=== PATIENT | female | born 1995 | race Caucasian/White ===

== ENCOUNTER 2018-05-18 06:24 | Emergency (ER) | payer OTHER ==
[2018-05-18] MEDS ORDERED: NORMAL SALINE 1000 ML 1,000 ML IV ONE (06:57)
[2018-05-18] MEDS ORDERED: KETOROLAC TROMETHAMINE INJ/PF 30 MG/1 ML SDV IV ONE (06:57)
[2018-05-18] MEDS ORDERED: ONDANSETRON HCL INJ/PF 4 MG/2 ML SDV IV ONE (06:57)
[2018-05-18 07:52] LABS: ALANINE AMINOTRANSFERASE 55 U/L (9-52); ALBUMIN 3.9 g/dL (3.5-5.0); ALKALINE PHOSPHATASE 136 U/L (38-126); ANION GAP 10 (5-19); ASPARTATE AMINO TRANSFERASE 35 U/L (14-36); BILIRUBIN,DIRECT 0.5 mg/dL (0.0-0.4); BILIRUBIN,TOTAL 1.3 mg/dL (0.2-1.3); BLOOD UREA NITROGEN 9 mg/dL (7-20); CALCIUM 9.5 mg/dL (8.4-10.2); CARBON DIOXIDE 26 mmol/L (22-30); CHLORIDE 101 mmol/L (98-107); GLUCOSE 129 mg/dL (75-110); LIPASE 13.8 U/L (23-300); POTASSIUM 4.1 mmol/L (3.6-5.0); SODIUM 136.8 mmol/L (137-145); TOTAL PROTEIN 6.7 g/dL (6.3-8.2)
[2018-05-18 07:54] LABS: HEMATOCRIT 34.7 % (36.0-47.0); HEMOGLOBIN 12.5 g/dL (12.0-15.5); MEAN CORPUSCULAR HEMOGLOBIN 31.5 pg (27.0-33.4); MEAN CORPUSCULAR HGB CONC 36.1 g/dL (32.0-36.0); MEAN CORPUSCULAR VOLUME 87 fl (80-97); PLATELET COUNT 360 10^3/uL (150-450); RED BLOOD COUNT 3.98 10^6/uL (3.72-5.28); RED CELL DISTRIBUTION WIDTH 11.7 % (11.5-14.0); WHITE BLOOD COUNT 19.3 10^3/uL (4.0-10.5)
[2018-05-18 07:59] LABS: AMORPHOUS SEDIMENT,URINE TRACE /HPF; APPEARANCE,URINE SLIGHTLY-CLOUDY; BILIRUBIN,URINE NEGATIVE (NEGATIVE); COLOR,URINE YELLOW; GLUCOSE, URINE NEGATIVE (NEGATIVE); KETONES,URINE NEGATIVE (NEGATIVE); LEUKOCYTE ESTERASE,URINE NEGATIVE (NEGATIVE); NITRITE,URINE NEGATIVE (NEGATIVE); PROTEIN,URINE NEGATIVE (NEGATIVE); URINE SPECIFIC GRAVITY 1.014
[2018-05-18 08:12] LABS: ABSOLUTE MONOCYTES # (MANUAL) 0.8 10^3/uL (0.1-1.4); ABSOLUTE NEUTROPHILS# (MANUAL) 17.4 10^3/uL (1.7-8.2); BASOPHILS % (MANUAL) 0 % (0-2); EOSINOPHILS % (MANUAL) 1 % (0-6); LYMPHOCYTES % (MANUAL) 5 % (13-45); MONOCYTES % (MANUAL) 4 % (3-13); PLATELET COMMENT ADEQUATE; SEGMENTED NEUTROPHILS % (MAN) 90 % (42-78); TOTAL CELLS COUNTED 100; TOXIC GRANULATION SLIGHT
--- NOTE | 2018-05-18 09:10 | RADIOLOGY REPORT (SQ) ---
EXAM DESCRIPTION: CT ABD/PELVIS WITH IV ONLY COMPLETED DATE/TIME: 05/18/2018 8:44 am REASON FOR STUDY: concern for appendicitis COMPARISON: None. TECHNIQUE: CT scan of the abdomen and pelvis performed using helical scanning technique with dynamic intravenous contrast injection. No oral contrast. Images reviewed with lung, soft tissue, and bone windows. Reconstructed coronal and sagittal MPR images reviewed. Delayed images for evaluation of the urinary system also acquired. All images stored on PACS. All CT scanners at this facility use dose modulation, iterative reconstruction, and/or weight based d osing when appropriate to reduce radiation dose to as low as reasonably achievable (ALARA). [facility]: Dose Right [facility]: CareDose [facility]: Dose Right [facility]: Teradose 4D [facility]: [employer] CONTRAST TYPE AND DOSE: contrast/concentration: Isovue 350.00 mg/ml; Total Contrast Delivered: 89.0 ml; Total Saline Delivered: 70.0 ml RENAL FUNCTION: Creatinine: 0.62 RADIATION DOSE: CT Rad equipment meets quality standard of care and radiation dose reduction techniq ues were employed. CTDIvol: 8.7 - 12.3 mGy. DLP: 1213 mGy-cm.. LIMITATIONS: None. FINDINGS: LOWER CHEST: Dependent atelectasis in lung bases. LIVER: Normal. SPLEEN: Normal. PANCREAS: Normal. GALLBLADDER: Normal. ADRENAL GLANDS: Normal. RIGHT KIDNEY AND URETER: No solid masses. No significant calcifications. No hydronephrosis or hyd roureter. LEFT KIDNEY AND URETER: No solid masses. No significant calcifications. No hydronephrosis or hydr oureter. AORTA AND VESSELS: No aneurysm. No dissection. Renal arteries, SMA, celiac without stenosis. RETROPERITONEUM: No retroperitoneal adenopathy, hemorrhage or masses. Multiple small nonenlarged per iaortic nodes. Scattered mesenteric nodes. BOWEL AND PERITONEAL CAVITY: No masses or inflammatory changes. No free fluid or peritoneal masses. APPENDIX: Not seen. PELVIS: Uterus: IUD in place. Small follicular cysts of the left ovary. 2.6 cm left ovarian cyst w ith surrounding inflammatory change and fluid suggesting recent rupture of a follicle. Urinary bladd er: Distended. ABDOMINAL WALL: No masses. No hernias. BONES: No abnormality OTHER: No other significant finding. IMPRESSION: 1. There is evidence of prominent follicular cysts of the left ovary. Changes consiste nt with recent rupture of follicular cyst with fluid and inflammatory change surrounding the left ova ry. COMMENT: The case was discussed with ER physician Dr. Martinez TECHNICAL DOCUMENTATION: JOB ID: [id number] Quality ID # [id number]: Final reports with documentation of one or more dose reduction techniques (e.g., Au tomated exposure control, adjustment of the mA and/or kV according to patient size, use of iterative reconstruction technique) 2010 [employer]- All Rights Reserved Reading location - IP/workstation name: [email or web address]
[2018-05-18] MEDS ORDERED: HYDROCODONE/ACETAMINOPHEN 5-325 MG TABLET PO ONE (10:13)
--- NOTE | 2018-05-18 10:15 | ER Document Report ---
ED General - General Chief Complaint: Abdominal Pain Stated Complaint: ABDOMINAL PAIN Time Seen by Provider: 05/18/18 06:45 Mode of Arrival: Ambulatory TRAVEL OUTSIDE OF THE [place] IN LAST 30 DAYS: No - HPI Patient complains to provider of: Abdominal pain Onset: Other - Healthy 22-year-old female who presents to the emergency department for abdominal pain which started last night around 10 PM making it difficult for her to sleep. She has had persistent pain since that time which worsened a little bit this morning prompting her and her mother to come to the emergency department. She notes some nausea some loose bowel movements. No chest pain shortness of breath lightheadedness diaphoresis back pain or other symptoms that she is noticed. She is never had anything like this in the past, has never surgical history, no known health problems no allergies. - Related Data Allergies/Adverse Reactions: nitrofurantoin Adverse Reaction (Verified 05/18/18 07:57) GI upset Past Medical History - General Information source: Patient, Relative - Social History Smoking Status: Unknown if Ever Smoked Family History: None Patient has suicidal ideation: No Patient has homicidal ideation: No Renal/ Medical History: Denies: Hx Peritoneal Dialysis Review of Systems - Review of Systems -: Yes All other systems reviewed and negative Physical Exam - Vital signs Vitals: Temp Pulse Resp BP Pulse Ox 98.8 F 112 H 18 115/64 97 05/18/18 06:24 05/18/18 06:24 05/18/18 06:24 05/18/18 06:24 05/18/18 06:24 Interpretation: Normal - General General appearance: Appears well, Alert - HEENT Head: Normocephalic, Atraumatic Eyes: Normal Pupils: PERRL - Respiratory Respiratory status: No respiratory distress Chest status: Nontender Breath sounds: Normal Chest palpation: Normal - Cardiovascular Rhythm: Regular Heart sounds: Normal auscultation Murmur: No - Abdominal Inspection: Normal Distension: No distension Bowel sounds: Normal Tenderness: Tender - Diffuse tenderness most prominent in the right lower quadrant with no appreciable rebound or guarding Organomegaly: No organomegaly - Back Back: Normal, Nontender - Extremities General upper extremity: Normal inspection, Nontender, Normal color, Normal ROM, Normal temperature General lower extremity: Normal inspection, Nontender, Normal color, Normal ROM, Normal temperature, Normal weight bearing. No: John Paul's sign - Neurological Neuro grossly intact: Yes Cognition: Normal Orientation: AAOx4 Elvin Coma Scale Eye Opening: Spontaneous [place]vin Coma Scale Verbal: Oriented [place] Coma Scale Motor: Obeys Commands [place] Coma Scale Total: 15 Speech: Normal Motor strength normal: LUE, RUE, LLE, RLE Sensory: Normal - Psychological Associated symptoms: Normal affect, Normal mood - Skin Skin Temperature: Warm Skin Moisture: Dry Skin Color: Normal Course - Re-evaluation Re-evalutation: 05/18/18 11:40 Is a well-appearing 22-year-old female who is relatively benign abdominal examination the presents for evaluation of abdominal pain times last night. Does have some cramping associated with it does have some nausea associated with a low-grade fever. Have a broad differential for this patient including but not limited to appendicitis, pancreatitis, cholecystitis, potential ovarian pathology pelvic pathology. We will obtain broad workup including urinalysis CT abdomen and pelvis CBC CMP. CT abdomen and pelvis any obvious appendicitis no obvious cholecystitis does demonstrate some pelvic fluid consistent likely with a cystic lesion in her left ovary. She does have a prominent leukocytosis. Following 2-hour reevaluation the patient continues to have a benign abdominal examination. I do not believe this represents a developing appendicitis. We did discuss potential underlying pelvic pathology she denies specifically any pelvic pain or pelvic discharge. Because she is well-appearing and able tolerate p.o. I will plan for the admi nistration of Toradol oral narcotic pain medication pelvic swabs. We will plan for probable discharge with return precautions and pending treatment of chlamydia or gonorrhea as necessary. 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 - Vital Signs Vital signs: Temp Pulse Resp BP Pulse Ox 98.8 F 112 H 18 115/64 97 05/18/18 06:24 05/18/18 06:24 05/18/18 06:24 05/18/18 06:24 05/18/18 06:24 - Laboratory Result Diagrams: 05/18/18 07:20 05/18/18 07:20 Laboratory results interpreted by me: 05/18/18 05/18/18 05/18/18 07:20 07:20 07:29 WBC 19.3 H Hct 34.7 L MCHC 36.1 H Seg Neuts % (Manual) 90 H Lymphocytes % (Manual) 5 L Abs Neuts (Manual) 17.4 H Sodium 136.8 L Glucose 129 H Direct Bilirubin 0.5 H ALT 55 H Alkaline Phosphatase 136 H Lipase 13.8 L Urine Urobilinogen 4.0 H Discharge - Discharge Clinical Impression: Nausea Abdominal pain Qualifiers: Abdominal location: unspecified location Qualified Code(s): R10.9 - Unspecified abdominal pain Ovarian cyst Qualifiers: Laterality: left Qualified Code(s): N83.202 - Unspecified ovarian cyst, left side Condition: Good Disposition: HOME, SELF-CARE Instructions: Abdominal Pain ([facility]), Antinausea Medication ([facility]), Oral Narcotic Medication ([facility]) Additional Instructions: Your seen today in the emergency department for your abdominal pain. I believe that your abdominal pain as a result of an ovarian cyst. You had an evaluation including a CAT scan, urine test, blood tests. I think it is important for you that you continue to use medication as needed, in case of any worsening pain he should return to the emergency room. You may use 1 g of Tylenol 4 times a day. You should use ibuprofen 400 mg every 6 hours. You should use the pain medication prescribed you only as needed. If you have fevers or chills inability to eat or drink please return to the emergency room. Prescriptions: Hydrocodone/Acetaminophen [Kinsey 5-325 mg Tablet] 1 tab PO Q8 PRN #12 tablet PRN Reason: Ondansetron [Zofran Odt 4 mg Tablet] 1 - 2 tab PO Q4H PRN #15 tab.rapdis PRN Reason: For Nausea/Vomiting
[2018-05-18 12:16] LABS: CHLAM PCR NOT DETECTED (NOT DETECT); GON PCR NOT DETECTED (NOT DETECT)
[2018-05-18 12:53] VITALS: BP 105/49
== END 2018-05-18 12:57 | disposition home or self-care (01) ==
LOC: ER 06:24
DX: N83.02 Follicular cyst of left ovary (principal); R11.0 Nausea; R19.4 Change in bowel habit; R50.9 Fever, unspecified; D72.829 Elevated white blood cell count, unspecified
CPT/HCPCS: 99284; 96361; 96374; 96375; 36415; 87070; 87086; 87880; 83690; 85025; 81025; 87077; 80053; 81001; 87491; 87591; 74177; J1885; J2405; J7030

== ENCOUNTER 2018-05-23 12:36 | Emergency (ER) | payer OTHER ==
[2018-05-23] MEDS ORDERED: KETOROLAC TROMETHAMINE 60 MG/2 ML SDV IM ONE (14:23)
--- NOTE | 2018-05-23 14:25 | ER Document Report ---
ED Medical Screen (RME) - General Chief Complaint: Abdominal Pain Stated Complaint: ABDOMINAL PAIN Time Seen by Provider: 05/23/18 14:22 Notes: Patient says that she is having constant abdominal pains. She was seen here Sunday and had a CT scan showing that she had ruptured an ovarian cyst. She was given hydrocodone for pain but is out of that medicine now and has been taking ibuprofen without any pain relief. Pain seems to be constant. She has some pain in the right upper quadrant that seems to radiate to her right shoulder. These pains are made worse with deep breaths, burping, coughing, etc. She is only able to lay on her back. Last bowel movement was about 5 days ago. Has not had a fever. TRAVEL OUTSIDE OF THE U.S[place] IN LAST 30 DAYS: No - Related Data Allergies/Adverse Reactions: nitrofurantoin Adverse Reaction (Verified 05/23/18 14:14) GI upset Past Medical History - Social History Chew tobacco use (# tins/day): No Frequency of alcohol use: None Drug Abuse: None Renal/ Medical History: Denies: Hx Peritoneal Dialysis Physical Exam - Vital signs Vitals: Temp Pulse Resp BP Pulse Ox 98.6 F 75 18 132/82 H 98 05/23/18 13:21 05/23/18 13:21 05/23/18 13:21 05/23/18 13:21 05/23/18 13:21 Course - Vital Signs Vital signs: Temp Pulse Resp BP Pulse Ox 98.6 F 75 18 132/82 H 98 05/23/18 13:21 05/23/18 13:21 05/23/18 13:21 05/23/18 13:21 05/23/18 13:21
[2018-05-23 15:09] LABS: ABSOLUTE EOSINOPHILS # (AUTO) 0.1 10^3/uL (0.0-0.6); ABSOLUTE LYMPHOCYTES (AUTO) 1.4 10^3/uL (0.5-4.7); ABSOLUTE MONOCYTES (AUTO) 0.8 10^3/uL (0.1-1.4); ABSOLUTE NEUT (AUTO) 8.3 10^3/uL (1.7-8.2); BASOPHILS % (AUTO) 0.3 % (0-2); EOSINOPHILS % (AUTO) 1.2 % (0-6); HEMATOCRIT 38.7 % (36.0-47.0); HEMOGLOBIN 13.9 g/dL (12.0-15.5); LYMPHOCYTES % (AUTO) 12.8 % (13-45); MEAN CORPUSCULAR HEMOGLOBIN 31.4 pg (27.0-33.4); MEAN CORPUSCULAR HGB CONC 35.8 g/dL (32.0-36.0); MEAN CORPUSCULAR VOLUME 88 fl (80-97); MONOCYTES % (AUTO) 7.1 % (3-13); PLATELET COUNT 460 10^3/uL (150-450); RED BLOOD COUNT 4.41 10^6/uL (3.72-5.28); RED CELL DISTRIBUTION WIDTH 11.8 % (11.5-14.0); SEGMENTED NEUTROPHILS % (AUTO) 78.6 % (42-78); TOTAL CELLS COUNTED % (AUTO) 100 %; WHITE BLOOD COUNT 10.6 10^3/uL (4.0-10.5)
[2018-05-23 15:18] LABS: ALANINE AMINOTRANSFERASE 58 U/L (9-52); ALBUMIN 4.2 g/dL (3.5-5.0); ALKALINE PHOSPHATASE 179 U/L (38-126); ANION GAP 10 (5-19); ASPARTATE AMINO TRANSFERASE 40 U/L (14-36); BILIRUBIN,DIRECT 0.4 mg/dL (0.0-0.4); BILIRUBIN,TOTAL 0.7 mg/dL (0.2-1.3); BLOOD UREA NITROGEN 7 mg/dL (7-20); CALCIUM 9.9 mg/dL (8.4-10.2); CARBON DIOXIDE 30 mmol/L (22-30); CHLORIDE 100 mmol/L (98-107); GLUCOSE 91 mg/dL (75-110); LIPASE 31.4 U/L (23-300); POTASSIUM 4.2 mmol/L (3.6-5.0); SODIUM 140.1 mmol/L (137-145); TOTAL PROTEIN 7.5 g/dL (6.3-8.2)
[2018-05-23 15:30] LABS: APPEARANCE,URINE CLEAR; BILIRUBIN,URINE NEGATIVE (NEGATIVE); COLOR,URINE YELLOW; GLUCOSE, URINE NEGATIVE (NEGATIVE); KETONES,URINE NEGATIVE (NEGATIVE); LEUKOCYTE ESTERASE,URINE NEGATIVE (NEGATIVE); NITRITE,URINE NEGATIVE (NEGATIVE); PROTEIN,URINE NEGATIVE (NEGATIVE); URINE SPECIFIC GRAVITY 1.006; UROBILINOGEN,URINE NEGATIVE mg/dL (<2.0)
--- NOTE | 2018-05-23 19:00 | RADIOLOGY REPORT (SQ) ---
EXAM DESCRIPTION: ACUTE ABDOMEN SERIES COMPLETED DATE/TIME: 05/23/2018 6:51 pm REASON FOR STUDY: silent BS/ ? ileus COMPARISON: None. NUMBER OF VIEWS: Three views. TECHNIQUE: Frontal chest, supine abdomen and upright/decubitus abdomen radiographic images acquired. LIMITATIONS: None. FINDINGS: CHEST: Atelectasis in the right mid zone. FREE AIR: None. No abnormal gas collections. BOWEL GAS PATTERN: Nonobstructive pattern. No dilated loops or air fluid levels. CALCIFICATIONS: No suspicious calcifications. HARDWARE: IUD. SOFT TISSUES: No gross mass or suggestion of organomegaly. BONES: No acute fracture. No worrisome bone lesions. OTHER: No other significant finding. IMPRESSION: NO RADIOGRAPHIC EVIDENCE FOR ACUTE ABDOMINAL DISEASE. TECHNICAL DOCUMENTATION: JOB ID: [id number] [employer]- All Rights Reserved Reading location - IP/workstation name: [email or web address]
--- NOTE | 2018-05-23 19:32 | ER Document Report ---
HPI - HPI Patient complains to provider of: Abdominal pain Time Seen by Provider: 05/23/18 14:22 Onset: Last week Onset/Duration: Sudden, Constant, Persistent Quality of pain: Achy, Other - Different different than presentation done on 05/18/2018. Pain Level: 3 Context: Patient is a 22-year-old female who was seen on May 18, 2018 by a physician for complaint of abdominal pain. Patient had a very extensive workup to include lab work which showed a 19,[address] of the abdomen and pelvis with contrast oral and IV which showed a normal appendix and all normal other findings. The only abnormality that was picked up was possibility of a ovarian cyst on the right side that had ruptured because there was free fluid seen in the pelvis. That point it was a estimate that this was what caused the discomfort and pain and was causing a white count. Patient was sent home on hydrocodone and she took pretty much all of it. She had a little bit better and in the last 48 hours she has been having advancing discomfort in the abdominal area again. But it is different presentation this time. Mother states that they went to her primary care physician at [facility] listen to her bowel sounds and told her that they were nonexistent and that she need to come to ER to get evaluated. Again there at length of stay today was based upon more critical patients ahead of them and at first on physical examination both were very stand all patient did not want to say much. After doing a flat plate and upright of the patient and finding that she had a large amount of stool in the rectal vault area and then a large amount on the ascending colon and was well as the descending colon and air in the transverse colon where patient's discomfort and pain was at the father started to listen and that this might be just a relationship of constipation secondary to the narcotic medication. Exacerbated by: Movement, Walking Relieved by: Supine Similar symptoms previously: No Recently seen / treated by doctor: Yes - ROS ROS below otherwise negative: Yes Systems Reviewed and Negative: Yes All other systems reviewed and negative - CONSTITUTIONAL Constitutional: DENIES: Fever - NEURO Neurology: DENIES: Headache, Weakness - CARDIOVASCULAR Cardiovascular: DENIES: Chest pain - RESPIRATORY Respiratory: DENIES: Trouble Breathing, Coughing - GASTROINTESTINAL Gastrointestinal: REPORTS: Abdominal Pain, Nausea, Constipation. DENIES: Patient vomiting, Diarrhea, Black / Bloody Stools - URINARY Urinary: DENIES: Dysuria, Urgency, Frequency - REPRODUCTIVE Reproductive: DENIES: : - MUSCULOSKELETAL Musculoskeletal: REPORTS: Back Pain. DENIES: Extremity pain, Neck Pain, Swelling - DERM Skin Color: Normal, [place] Skin Problems: None Past Medical History - General Information source: Patient, Parent - Social History Smoking Status: Never Smoker Cigarette use (# per day): No Chew tobacco use (# tins/day): No Smoking Education Provided: No Frequency of alcohol use: None Drug Abuse: None Family History: None, Reviewed & Not Pertinent Patient has suicidal ideation: No Patient has homicidal ideation: No Renal/ Medical History: Denies: Hx Peritoneal Dialysis Vertical Provider Document - CONSTITUTIONAL Agree With Documented VS: Yes General Appearance: WD/WN, No Apparent Distress, Other - Moderate amount of discomfort is noted though. - INFECTION CONTROL TRAVEL OUTSIDE OF THE [place] IN LAST 30 DAYS: No - HEENT HEENT: Atraumatic. negative: Conjuctival Injection, Dental Injury, Pharyngeal Erythema - NECK Neck: Normal Inspection, Supple - RESPIRATORY Respiratory: Breath Sounds Normal, No Respiratory Distress, Chest Non-Tender. negative: Rales, Rhonchi, Wheezing - CARDIOVASCULAR Cardiovascular: Regular Rate, Regular Rhythm, No Murmur - BACK Back: Normal Inspection. negative: Abnormal Inspection, CVA Tenderness-Right, CVA Tenderness-Left - MUSCULOSKELETAL/EXTREMETIES Musculoskeletal/Extremeties: FROM, Non-Tender, Tender, No Edema - NEURO Level of Consciousness: Awake, Alert, Appropriate Motor/Sensory: No Motor Deficit Deep Tendon Reflexes: 2+ - DERM Integumentary: Warm, Dry, No Rash Adult Front & Back Diagram: 1 - Area of discomfort is diffuse nonspecific Course - Re-evaluation Re-evalutation: 05/24/18 00:59 As stated once patient was able to see that the constipation was pretty extensive throughout the abdomen and we had a plan of how to treat it she was much happier. Mother was also in agreement that the treatment plan was appropriate for her presentation. Given that her labs were all normal there is no sense to repeat any of the diagnostic studies with the exception of the x- rays that we did. - Vital Signs Vital signs: Temp Pulse Resp BP Pulse Ox 98.6 F 75 18 132/82 H 98 05/23/18 13:21 05/23/18 13:21 05/23/18 13:21 05/23/18 13:21 05/23/18 13:21 - Laboratory Result Diagrams: 05/23/18 14:40 05/23/18 14:40 Laboratory results interpreted by me: 05/23/18 05/23/18 14:40 14:40 WBC 10.6 H Plt Count 460 H Seg Neutrophils % 78.6 H Lymphocytes % 12.8 L Absolute Neutrophils 8.3 H AST 40 H ALT 58 H Alkaline Phosphatase 179 H Discharge - Discharge Clinical Impression: Constipation Qualifiers: Constipation type: drug induced constipation Qualified Code(s): K59.03 - Drug induced constipation Condition: Stable Disposition: HOME, SELF-CARE Instructions: Abdominal Pain ([facility]), Constipation ([facility]) Additional Instructions: ABDOMINAL PAIN: There are many causes of abdominal pain. Pain can mean a serious problem requiring surgery (such as appendicitis). It can also be an innocent problem that goes away on its own (such as a viral infection). Often, time must pass to determine the cause of pain. The physician does not feel that hospitalization is necessary, at present. Things may change within the next 24 hours. Call the doctor or come back for re- examination if any problems occur, such as: (1) Pain that becomes more severe, steady, or becomes concentrated in one specific area. Also, pain that is more severe with movement or coughing. (2) Vomiting that persists or becomes more frequent. (3) Blood in the vomitus, urine, or bowel movements. Blood in the stool may have a tarry or black appearance. (4) Shaking chills or fever greater than 100 degrees F. (5) The abdomen becomes more distended or swollen. (6) Bowel movements cease. (7) Failure to improve as expected. CONSTIPATION: Constipation is a common problem. It is especially likely as you get older. Constipation is a common cause of abdominal pain, but sometimes causes no symptoms at all. Causes of constipation include certain medications, dehydration, diets, inactivity, and low-fiber intake. Rarely, it can be a symptom of underlying disease. The physician has evaluated you for this. Avoid constipation by eating a diet high in fiber, fruits, and vegetables. Drink plenty of liquids. Get regular exercise. If possible, avoid constipating medicines like narcotic pain medication. Some vitamin tablets can cause constipation. Stool softeners may be needed for difficult cases. An excellent stool softener is Konsyl which is available at [employer], and [employer] drug [employer]. Just add a teaspoon to a glass of pineapple or orange juice daily or twice a day if needed. Laxatives are useful for occasional constipation. You should use them only when necessary. Too-frequent use can make your bowels dependent on them. Some over the counter laxatives available without prescription are: Dulcolax, 5 mg pill or 10 mg suppository. Citrate of Magnesia, 4-5 ounces a day for a day or two For acute constipation, Fleet's Enemas and Dulcolax suppositories are helpful. Chronic, group home use of laxatives or enemas is not a good idea. Your bowel may become dependant on them. You do not need to have a bowel movement every day. Many people do fine with a bowel movement every three or four days. You should call your doctor or return for re-evaluation if you pass blood in the stool, or if you develop fever or increasing abdominal pain. BULK LAXATIVES: Bulk laxatives make the stool softer and bulkier. They're useful for preventing constipation. You can choose between psyllium, methylcellulose, and polycarbophil. They are available without a prescription. Psyllium brand names include Konsyl, Metamucil, Perdiem, Effer-Syllium and Hydrocil. It's available as powder, flavored drink powder, or chewable. The usual dose of psyllium powder is one heaping teaspoon in water each morning, increasing to twice a day if needed. [place] juice can disguise the slightly grainy texture. Methylcellulose is marketed as Citrucel and other brands. The average dose is two grams in a cup of water one to three times a day. Polycarbophil is marketed as Fiber-Con. Take two tablets with a cup of water one to three times a day. FOLLOW-UP CARE: If you have been referred to a physician for follow-up care, call the physicians office for an appointment as you were instructed or within the next two days. If you experience worsening or a significant change in your symptoms, notify the physician immediately or return to the Emergency Department at any time for re-evaluation. As we discussed it appears your abdominal pain and discomfort is coming from constipation caused by the hydrocodone/pain medication. All your other labs were absolutely much improved upper lobe wants previous. Given that your primary care provider had not heard any bowel sounds that was kind of a to pop point but one that needed to be investigated make sure there was no obstruction or ileus or impaction. At this time none of the above with the exception of constipation. As we discussed there are multiple ways to try to settle this problem. The way I find the most gentle is with milk of magnesia. You may use the generic version is just as good. Before bed tonight drink 2 of the shot glass type full of fluid the come on top of the bottle. Follow this with 12 or 20 ounces of warm tap water and then go to bed. In the morning when you wake up drink a hot coffee or hot tea this will stimulate you did not have a nice fluid bowel movement. You MAY ADD TO THAT TONIGHT A HOT TEA WITH THE DOUBLE DOSAGE OF MIRALAX AND DRINK THAT WELL. THE COMBINATION BETWEEN THE MILK OF MAGNESIA AND THIS SHOULD MAKE YOU CLEAN HERSELF OUT. BEFORE ALL THIS STARTS HOWEVER YOU NEED TO USE A GLYCERIN SUPPOSITORY TO BREAK UP THE DAM IN THE LOWER PORTION. APPLY 1 SUPPOSITORY PER RECTUM WITH YOUR INDEX FINGER FAR YOU CAN PUSH IT IN. HOLD IT FOR LONG YOU CAN. THIS MAY BE UNCOMFORTABLE BUT IT IS NECESSARY AT THIS TIME. YOU COULD ALSO INSTEAD OF THE SUPPOSITORY USE A FLEETS ENEMA THIS WOULD BE YOUR CHOICE WHICH EVER ONE IS MORE COMFORTABLE FOR YOU TO DO. REGARDLESS OF YOUR CHOICES BY TOMORROW MID MORNING YOU SHOULD FEEL A LOT BETTER. SHOULD YOU HAVE ANY CONCERNS OR PROBLEMS OR IF THIS DOES NOT SEEM TO FIX THE PROBLEM RETURN TO ER FOR A RECHECK. Prescriptions: Glycerin 1 each RC BID #12 supp.rect Forms: Elevated Blood Pressure Referrals: [facility] [Provider Group] - Follow up as needed
[2018-05-23 19:35] VITALS: BP 108/61
== END 2018-05-23 19:46 | disposition home or self-care (01) ==
LOC: ER 12:36
DX: K59.03 Drug induced constipation (principal); R11.0 Nausea; M54.9 Dorsalgia, unspecified
CPT/HCPCS: 99284; 96372; 36415; 83690; 84703; 85025; 80053; 81001; 74022; J1885